=== PATIENT | male | born 1985 | race Caucasian/White ===

== ENCOUNTER 2016-07-28 19:21 | Emergency (ER) | payer BC ==
[~2016-07-28] VITALS: Ht 170.2 cm; Wt 74.8 kg
[2016-07-28 19:34] VITALS: BP 138/92
--- NOTE | 2016-07-28 20:38 | PHYS DOC ---
Past Medical History Past Medical History: Anxiety, Bipolar, Hypertension Past Surgical History: No Surgical History Alcohol Use: None Drug Use: None Adult General Chief Complaint Chief Complaint: MEDICATION REFILL [facility] Patient is a 30 year old male who presents with request for refill of his medications. reports he was taking Prozac, Trazadone and Vistaril and has been out for one month. States he has been feeling fine without SI/HI but doesn't want to get that way. Reports he has an apoitnment [facility] next week. Review of Systems Review of Systems Constitutional: Denies fever or chills [] Eyes: Denies change in visual acuity, redness, or eye pain [] HENT: Denies nasal congestion or sore throat [] Respiratory: Denies cough or shortness of breath [] Cardiovascular: No additional information not addressed in HPI [] GI: Denies abdominal pain, nausea, vomiting, bloody stools or diarrhea [] : Denies dysuria or hematuria [] Musculoskeletal: Denies back pain or joint pain [] Integument: Denies rash or skin lesions [] Neurologic: Denies headache, focal weakness or sensory changes [] Endocrine: Denies polyuria or polydipsia [] Allergies Allergies Allergies Coded Allergies Type Severity Reaction Last Updated Verified No Known Drug Allergies 04/15/15 No Physical Exam Physical Exam Constitutional: Well developed, well nourished, no acute distress, non-toxic appearance. [] HENT: Normocephalic, atraumatic, bilateral external ears normal, oropharynx moist, no oral exudates, nose normal. [] Eyes: PERRLA, EOMI, conjunctiva normal, no discharge. [] Neck: Normal range of motion, no tenderness, supple, no stridor. [] Cardiovascular:Heart rate regular rhythm, no murmur [] Lungs & Thorax: Bilateral breath sounds clear to auscultation [] Abdomen: Bowel sounds normal, soft, no tenderness, no masses, no pulsatile masses. [] Skin: Warm, dry, no erythema, no rash. [] Back: No tenderness, no CVA tenderness. [] Extremities: No tenderness, no cyanosis, no clubbing, ROM intact, no edema. [] Neurologic: Alert and oriented X 3, normal motor function, normal sensory function, no focal deficits noted. [] Psychologic: Affect normal, judgement normal, mood normal. Current Patient Data Vital Signs Vital Signs Date Time Temp Pulse Resp B/P Pulse Ox O2 Delivery O2 Flow Rate FiO2 07/28/16 19:34 91 18 Room Air EKG EKG [] Radiology/Procedures Radiology/Procedures [] Impressions: 1. Medication refill Course & Med Decision Making Course & Med Decision Making Pertinent Labs and Imaging studies reviewed. (See chart for details) Discussed with patient that because he has been without these medicaitons for some time, it is safer to wait until he is seen at his mental health appt due to the necessity of outpatient follow up of mediciaotns and monitoring of side effects. Also discussed that he should return with any change in mood, thoughts of SI/HI or any other concerns. Dragon Disclaimer Dragon Disclaimer This electronic medical record was generated, in whole or in part, using a voice recognition dictation system. Departure Departure Impression: Primary Impression: Medication refill Disposition: HOME, SELF-CARE Condition: STABLE Referrals: NO PCP (PCP) Patient Instructions: Medication Refill, Emergency Department Additional Instructions: Keep your appointment for next week. Return if any problems, concerns, thoughts of harming self or others. AZAM DURBIN APRN Jul 28, 2016 20:38
== END 2016-07-28 20:44 | disposition home or self-care (01) ==
LOC: ER 19:21
DX: Z76.0 Encounter for issue of repeat prescription (principal); F41.9 Anxiety disorder, unspecified; F31.9 Bipolar disorder, unspecified; I10 Essential (primary) hypertension
CPT/HCPCS: 99281

== ENCOUNTER 2017-07-24 10:31 | Emergency (ER) | payer SELFPAY ==
[2017-07-24 11:27] LABS: ADD MAN DIFF? NO
[2017-07-24] MEDS: IV NORMAL SALINE 1000ML BAG 1,000 ML IV (11:30)
[2017-07-24 11:32] LABS: BASO # 0.1 x10^3/uL (0.0-0.2); BASO % 1 % (0-3); BILIRUBIN,URINE NEGATIVE (NEG); CLARITY,URINE CLEAR; COLOR,URINE YELLOW; EOS # 0.1 x10^3/uL (0.0-0.7); EOS % 1 % (0-3); GLUCOSE,URINE NEGATIVE (NEG); HEMATOCRIT 49.6 % (39.0-53.0); HEMOGLOBIN 16.7 g/dL (13.0-17.5); LYMPH % 24 % (24-48); MEAN CORPUSCULAR HEMOGLOBIN 31 pg (25-35); MEAN CORPUSCULAR HGB CONC 34 g/dL (31-37); MEAN CORPUSCULAR VOLUME 91 fL (79-100); MONO # 0.9 x10^3/uL (0.0-1.1); MONO % 11 % (0-9); NEUT # 5.4 x10^3uL (1.8-7.7); NEUT % 64 % (31-73); NITRITE,URINE NEGATIVE (NEG); PH,URINE 5.5; PLATELET COUNT 298 x10^3/uL (140-400); PROTEIN,URINE NEGATIVE (NEG-TRACE); RED BLOOD COUNT 5.46 x10^6/uL (4.30-5.70); RED CELL DISTRIBUTION WIDTH 13.2 % (11.5-14.5); UROBILINOGEN,URINE 0.2 mg/dL (0.2 mg/dL); WHITE BLOOD COUNT 8.4 x10^3/uL (4.0-11.0)
[2017-07-24 11:41] LABS: INR 0.9 (0.8-1.1); PARTIAL THROMBOPLASTIN TIME 27 SEC (24-38); PROTHROMBIN TIME PATIENT 11.7 SEC (11.7-14.0)
[2017-07-24 11:43] LABS: ANION GAP 10 (6-14); BLOOD UREA NITROGEN 15 mg/dL (8-26); CALCIUM 9.4 mg/dL (8.5-10.1); CARBON DIOXIDE 25 mmol/L (21-32); CHLORIDE 104 mmol/L (98-107); CREATININE 0.8 mg/dL (0.7-1.3); GLUCOSE 74 mg/dL (70-99); POTASSIUM 4.4 mmol/L (3.5-5.1); SODIUM 139 mmol/L (136-145)
[2017-07-24 11:46] LABS: BARBITURATES NEG (NEG); BENZODIAZEPINES NEG (NEG); CANNABINOIDS NEG (NEG); COCAINE NEG (NEG); METHADONE NEG (NEG); OPIATES NEG (NEG); PHENCYCLIDINE NEG (NEG)
[2017-07-24 11:47] LABS: AMPHETAMINE/METHAMPHETAMINE NEG (NEG); ETHANOL, URINE NEG (NEG)
[2017-07-24 11:49] LABS: ALK PHOS 135 U/L (46-116); ALT (SGPT) 45 U/L (16-63); AST (SGOT) 16 U/L (15-37); DIRECT BILIRUBIN 0.1 mg/dL (0.0-0.2); LIPASE 142 U/L (73-393); TOTAL BILIRUBIN 0.2 mg/dL (0.2-1.0); TOTAL PROTEIN 7.6 g/dL (6.4-8.2)
[2017-07-24 11:53] LABS: BACTERIA,URINE 0 /HPF (0-FEW); RBC,URINE 0 /HPF (0-2); WBC,URINE 0 /HPF (0-4)
[2017-07-24 11:54] LABS: CKMB MASS 0.7 ng/mL (0.0-3.6); CREATINE KINASE 69 U/L (39-308)
[2017-07-24] MEDS: ONDANSETRON PF 4 MG/2 ML VIAL. IV (12:07)
[2017-07-24] MEDS: LIDO:MAALOX:DONNATAL 1:1:1 15 ML SINGLE DOSE SWSW (12:08)
[2017-07-24] MEDS ORDERED: CONTRAST GIVEN MC (13:15)
[2017-07-24] MEDS: IOHEXOL 300 MG/ML 100ML VIAL. IV (13:23)
== END 2017-07-24 15:10 | disposition home or self-care (01) ==
LOC: ER 10:31
DX: R10.84 Generalized abdominal pain (principal); R10.13 Epigastric pain; R19.7 Diarrhea, unspecified; K59.00 Constipation, unspecified
CPT/HCPCS: 36415; 74177; 80048; 80076; 80307; 81001; 82553; 83690; 85025; 85610; 85730; 96361; 96374; 99285-25; J2405; J7030; Q9967

== ENCOUNTER 2017-12-29 08:15 | Emergency (ER) | payer SELFPAY ==
[2017-12-29 09:43] LABS: ADD MAN DIFF? NO
[2017-12-29 09:46] LABS: BASO # 0.1 x10^3/uL (0.0-0.2); BASO % 1 % (0-3); EOS # 0.1 x10^3/uL (0.0-0.7); EOS % 0 % (0-3); HEMATOCRIT 46.9 % (39.0-53.0); HEMOGLOBIN 16.2 g/dL (13.0-17.5); LYMPH # 1.8 x10^3/uL (1.0-4.8); LYMPH % 14 % (24-48); MEAN CORPUSCULAR HEMOGLOBIN 31 pg (25-35); MEAN CORPUSCULAR HGB CONC 35 g/dL (31-37); MEAN CORPUSCULAR VOLUME 90 fL (79-100); MONO # 0.9 x10^3/uL (0.0-1.1); MONO % 7 % (0-9); NEUT # 9.9 x10^3uL (1.8-7.7); NEUT % 78 % (31-73); PLATELET COUNT 322 x10^3/uL (140-400); RED BLOOD COUNT 5.21 x10^6/uL (4.30-5.70); RED CELL DISTRIBUTION WIDTH 13.2 % (11.5-14.5); WHITE BLOOD COUNT 12.8 x10^3/uL (4.0-11.0)
[2017-12-29] MEDS: IV NORMAL SALINE 1000ML BAG 1,000 ML IV (09:50)
[2017-12-29] MEDS: MORPHINE SULFATE 4 MG/ML DISP.SYRIN. IV (09:51)
[2017-12-29 09:55] LABS: ANION GAP 9 (6-14); BLOOD UREA NITROGEN 17 mg/dL (8-26); BUN/CREATININE RATIO 19 (6-20); CALCIUM 9.2 mg/dL (8.5-10.1); CARBON DIOXIDE 28 mmol/L (21-32); CHLORIDE 103 mmol/L (98-107); CREATININE 0.9 mg/dL (0.7-1.3); GFR 97.2; GLUCOSE 97 mg/dL (70-99); POTASSIUM 4.1 mmol/L (3.5-5.1); SODIUM 140 mmol/L (136-145)
[2017-12-29 10:01] LABS: ALBUMIN 4.1 g/dL (3.4-5.0); ALBUMIN/GLOBULIN RATIO 1.3 (1.0-1.7); ALK PHOS 142 U/L (46-116); ALT (SGPT) 28 U/L (16-63); AST (SGOT) 10 U/L (15-37); LIPASE 153 U/L (73-393); TOTAL BILIRUBIN 0.2 mg/dL (0.2-1.0); TOTAL PROTEIN 7.3 g/dL (6.4-8.2)
[2017-12-29] MEDS: LIDO:MAALOX 1:1 20 ML SINGLE DOSE. PO (11:21)
== END 2017-12-29 12:05 | disposition home or self-care (01) ==
LOC: ER 08:15
DX: R10.13 Epigastric pain (principal); R10.12 Left upper quadrant pain; R00.0 Tachycardia, unspecified; K21.9 Gastro-esophageal reflux disease without esophagitis; I10 Essential (primary) hypertension; F17.200 Nicotine dependence, unspecified, uncomplicated; Z90.49 Acquired absence of other specified parts of digestive tract
CPT/HCPCS: 36415; 80053; 83690; 85025; 96374; 99284; J2270; J7030

== ENCOUNTER 2018-02-23 10:50 | Emergency (ER) | payer SELFPAY ==
[~2018-02-23] VITALS: Ht 170.2 cm; Wt 90.7 kg
[2018-02-23 10:50] VITALS: BP 149/88
[~2018-02-23 10:50] MED LIST: HYDR-971 PO; OXYC-323 PO
[2018-02-23] MEDS ORDERED: DICL50TA4 PO (11:41)
--- NOTE | 2018-02-23 11:41 | PHYS DOC ---
Past Medical History Past Medical History: GERD, Hypertension Past Surgical History: Cholecystectomy Alcohol Use: Occasionally Drug Use: None Adult General Chief Complaint Chief Complaint: LOWER EXT PAIN HPI HPI Patient is a 32 year old male with history of hypertension who presents today complaining of a sharp 8 out of 10 intermittent left generalize knee pain worse on ambulation that began yesterday. Patient states he was standing at the bus stop when his left knee gave out and he fell. Patient denies any loss of consciousness. Review of Systems Review of Systems Constitutional: Denies fever or chills [] Musculoskeletal: Reports left knee pain Integument: Denies rash or skin lesions [] Neurologic: Denies headache, focal weakness or sensory changes [] All other systems were reviewed and found to be within normal limits, except as documented in this note. Allergies Allergies Allergies Coded Allergies Type Severity Reaction Last Updated Verified No Known Drug Allergies 04/15/15 No Physical Exam Physical Exam Constitutional: Well developed, well nourished, no acute distress, non-toxic appearance. [] Skin: Warm, dry, no erythema, no rash. [] Back: No tenderness, no CVA tenderness. [] Extremities: Left knee with no obvious deformity, no tenderness on exam, full range of motion to the left knee, negative Mor sign and negative Columba's sign negative anterior-posterior drawer sign. +2 left pedal pulse. Cap refill less than 2 seconds and left lower extremity. Neurologic: Alert and oriented X 3, normal motor function, normal sensory function, no focal deficits noted. [] Psychologic: Affect normal, judgement normal, mood normal. [] Current Patient Data Vital Signs Vital Signs Date Time Temp Pulse Resp B/P (MAP) Pulse Ox O2 Delivery O2 Flow Rate FiO2 02/23/18 10:50 97.1 85 18 149/88 (108) 99 Room Air 97.1 EKG EKG [] Radiology/Procedures Radiology/Procedures [] Course & Med Decision Making Course & Med Decision Making Pertinent Labs and Imaging studies reviewed. (See chart for details) []This is a 32-year-old male patient presented to the ED today with complaints of left knee pain, he states his left knee gave out yesterday and he fell on it. Offered patient x-rays, he states he has had a couple x-rays of the left knee that were negative. He states he believes he needs an MRI. Informed him we do not do nonemergent MRIs in the emergency room. Provided him with orthopedic doctor to call and follow-up as an outpatient for an MRI. Shayy Disclaimer Shayy Disclaimer This electronic medical record was generated, in whole or in part, using a voice recognition dictation system. Departure Departure Impression: Primary Impression: Knee pain, left Additional Impression: Fall from standing Disposition: 01 HOME, SELF-CARE Condition: STABLE Referrals: NO PCP (PCP) YURY LA MD follow up in one week Patient Instructions: Knee Pain, [id number] Additional Instructions: You were evaluated in the emergency room for left knee pain. Please contact the provided orthopedic doctor next 7 days and follow-up as an outpatient. Ice and elevate the extremity. Wear the Rene bandage provided as needed. Scripts Diclofenac Sodium (DICLOFENAC SODIUM) 50 Mg Tablet.dr 1 TAB PO BID, #60 TAB 0 Refills Prov: ANDREY SONG SCARLET 02/23/18 Problem Qualifiers Primary Impression: Knee pain, left Chronicity: acute Qualified Codes: M25.562 - Pain in left knee Additional Impression: Fall from standing Encounter type: initial encounter Qualified Codes: W19.XXXA - Unspecified fall, initial encounter ANDREY SONG [employer]RE [employer] Feb 23, 2018 11:41
== END 2018-02-23 11:45 | disposition home or self-care (01) ==
LOC: ER 10:50
DX: M25.562 Pain in left knee (principal); I10 Essential (primary) hypertension; K21.9 Gastro-esophageal reflux disease without esophagitis; Z90.49 Acquired absence of other specified parts of digestive tract; W18.30XA Fall on same level, unspecified, initial encounter; Y93.89 Activity, other specified; Y92.89 Other specified places as the place of occurrence of the external cause; Y99.8 Other external cause status
CPT/HCPCS: 99283

== ENCOUNTER 2020-08-13 13:51 | Emergency (ER) | payer SELFPAY ==
[~2020-08-13] VITALS: Ht 170.2 cm; Wt 84.5 kg
[~2020-08-13 13:51] MED LIST changes: +DICL50TA4 PO; +HYDR-3164 PO; -HYDR-971 PO; -OXYC-323 PO; +OXYC1TAB15 PO
[2020-08-13 14:00] VITALS: BP 127/75
--- NOTE | 2020-08-13 14:15 | ED.ADGEN ---
Past Medical History Past Medical History: GERD, Hypertension Past Surgical History: Cholecystectomy Smoking Status: Current Every Day Smoker Alcohol Use: Occasionally Drug Use: None General Adult EDM: Chief Complaint: KNEE INJURY HPI: HPI: Patient is a 34 year old male who presents emergency department with complaints of left lateral knee pain for the last 5 days. Patient reports he stepped out of his truck on Monday and felt something pop. Ever since feeling a popping sensation in his knee he was unable to bear weight until today. He denies any numbness, tingling, or decreased range of motion of his left knee. He currently rates pain a 4 out of 10 on the pain scale, patient reports he has been taking Tylenol at home for pain relief. Review of Systems: Review of Systems: Complete ROS is negative unless otherwise noted in HPI. Allergies: Allergies: Allergies Coded Allergies Type Severity Reaction Last Updated Verified No Known Drug Allergies 04/15/15 No Physical Exam: PE: See Above Constitutional: Well developed, well nourished, no acute distress, non-toxic appearance. [] HENT: Normocephalic, atraumatic, bilateral external ears normal, nose normal. [] Eyes: PERRLA, EOMI, conjunctiva normal, no discharge. [] Neck: Normal range of motion, no stridor. [] Cardiovascular:Heart rate regular rhythm Lungs & Thorax: Respirations even and unlabored, no retractions, no respiratory distress Skin: Warm, dry, no erythema, no rash. [] Extremities: Left knee: No obvious deformity, no crepitus, lateral tenderness to palpation, anterior/posterior drawer testing is negative, no cyanosis, ROM intact, no edema. [] Neurologic: Alert and oriented X 3, normal motor, normal sensory, no focal deficits noted. [] Psychologic: Affect normal, judgement normal, mood normal. [] Current Patient Data: Vital Signs: Vital Signs Date Time Temp Pulse Resp B/P (MAP) Pulse Ox O2 Delivery O2 Flow Rate FiO2 08/13/20 14:00 97.8 69 18 127/75 (92) 98 Room Air 97.8 EKG: EKG: [] Heart Score: C/O Chest Pain: No Risk Factors: Risk Factors: DM, Current or recent (<one month) smoker, HTN, HLP, family history of CAD, obesity. Risk Scores: Score 0 - 3: 2.5% MACE over next 6 weeks - Discharge Home Score 4 - 6: 20.3% MACE over next 6 weeks - Admit for Clinical Observation Score 7 - 10: 72.7% MACE over next 6 weeks - Early Invasive Strategies Radiology/Procedures: Radiology/Procedures: PROCEDURE: KNEE LEFT 3V INDICATION: Reason: left knee pain after feeling pop 5 days ago getting out of truck / Spl. Instructions: / History: COMPARISON: None. IMPRESSION: Left knee: 3 views obtained. Moderate knee joint effusion. No evidence of dislocation. There is some degenerative changes. A definite acute fracture line is not seen. Electronically signed by: Santy Scruggs MD (08/13/2020 2:37 PM) [id number] [] Course & Med Decision Making: Course & Med Decision Making Pertinent Labs and Imaging studies reviewed. (See chart for details) [] Dragon Disclaimer: Dragon Disclaimer: This electronic medical record was generated, in whole or in part, using a voice recognition dictation system. Departure Departure Impression: Primary Impression: Knee pain, left Disposition: 01 DC HOME SELF CARE/HOMELESS Condition: STABLE Referrals: JENNIFER PENDLETON MD Patient Instructions: Knee Effusion, [id number] Additional Instructions: Tylenol or ibuprofen as needed for pain. Recommend application of ice, elevation, and rest of affected extremity. Wear the knee immobilizer that was placed until follow up appointment with your primary care doctor or orthopedics. I recommend you follow-up with Dr. Pendleton in the next week.. Return to the ER if your symptoms worsen. Splinting Splinting : Location: Left knee Pre-Made Type: velcro Splint: Knee immobilizer Pre-Proc Neuro Vasc Exam: normal Post-Proc Neuro Vasc Exam: normal, unchanged from pre-exam Problem Qualifiers Primary Impression: Knee pain, left Chronicity: acute Qualified Codes: M25.562 - Pain in left knee SURJIT WEINSTEIN APRN Aug 13, 2020 14:15
--- NOTE | 2020-08-13 14:40 | RAD ---
INDICATION: Reason: left knee pain after feeling pop 5 days ago getting out of truck / Spl. Instructi ons: / History: COMPARISON: None. IMPRESSION: Left knee: 3 views obtained. Moderate knee joint effusion. No evidence of dislocation. There is some degenerative changes. A definite acute fracture line is not seen. Electronically signed by: Santy Scruggs MD (08/13/2020 2:37 PM) [id number]
== END 2020-08-13 15:14 | disposition home or self-care (01) ==
LOC: ER 13:51
DX: M25.562 Pain in left knee (principal); R20.2 Paresthesia of skin; K21.9 Gastro-esophageal reflux disease without esophagitis; I10 Essential (primary) hypertension; F17.200 Nicotine dependence, unspecified, uncomplicated; Z90.49 Acquired absence of other specified parts of digestive tract
CPT/HCPCS: 29505; 73562; 99283